=== PATIENT | female | born 1970 | race Caucasian/White ===

== ENCOUNTER → 2020-03-11 11:39 | Outpatient (CLI) | payer MEDICARE, MEDICAID, SELFPAY ==
[2020-03-11 12:00] LABS: Basophils # 0.1 K/mm3 (0-0.2); Basophils % 0.7 % (0.1-2.0); Eosinophils # 0.1 K/mm3 (0.0-0.4); Eosinophils % 0.9 % (0.1-12.0); Hemoglobin 12.7 g/dL (12.2-16.2); Lymphocytes # 1.6 K/mm3 (0.7-4.5); Lymphocytes % 14.3 % (10-50); Mean Corpuscular Hemoglobin 27.9 pg (27.0-31.2); Mean Platelet Volume 7.4 fl (7.4-10.4); Monocytes # 0.3 K/mm3 (0.1-1.0); Monocytes % 2.3 % (1.7-9.3); Neutrophils # 9.3 K/mm3 (1.8-7.8); Neutrophils % 81.9 % (37.0-80.0); Platelet Count 441 K/mm3 (142-424); Red Blood Count 4.55 M/mm3 (4.20-5.40); Red Cell Distribution Width 15.6 % (11.5-17.5); White Blood Count 11.4 K/mm3 (4.8-10.8)
[2020-03-11 14:17] LABS: Chloride 101 mmol/L (98-107); Potassium 4.7 mmoL/L (3.5-5.1); Sodium 138 mmol/L (136-145)
[2020-03-11 14:20] LABS: Alanine Aminotransferase 20 U/L (12-78); Alkaline Phosphatase 78 U/L (38-126); Anion Gap 15.7 mEq/L (5-15); Aspartate Amino Transferase 26 U/L (14-36); Bilirubin,Direct 0.1 mg/dl (0.0-0.4); Bilirubin,Indirect 0.2 mg/dL (0.0-0.9); Bilirubin,Total 0.3 mg/dl (0.2-1.3); Bilirubin,Unconjugated 0.2 mg/dL (0.0-1.1); Blood Urea Nitrogen 11 mg/dl (7-17); Calcium 9.9 mg/dl (8.4-10.2); Carbon Dioxide 26 mmol/L (22.0-30.0); Estimated Glomerular Filt Rate 76 ml/min (>60); GFR (African American) 92 ML/MIN (>60); Glucose 180 mg/dl (74-100)
[2020-03-11 14:21] LABS: Albumin Level 4.1 g/dl (3.5-5.0); Total Protein,Serum 7.7 g/dl (6.3-8.2)
[2020-03-12 10:07] LABS: HIV Screen 4th Generation wRfx Non Reactive (Non Reactive)
[2020-03-12 15:09] LABS: Hep A Ab, IgM Negative (Negative); Hepatitis B Core Antibody IgM Negative (Negative); Hepatitis B Surface Antigen Negative (Negative)
[2020-03-13 09:35] LABS: Hepatitis C Antibody <0.1 s/co ratio (0.0-0.9)
[2020-03-14 04:28] LABS: Rapid Plasma Reagin Ab Titer Non Reactive (NonRea<1:1)
== END ==
PROVIDERS: Visit Provider Family Medicine Addiction Medicine
DX: F11.20 Opioid dependence, uncomplicated (principal); Z11.4 Encounter for screening for human immunodeficiency virus [HIV]; Z11.59 Encounter for screening for other viral diseases
CPT/HCPCS: 36415; 80048; 80053; 80074; 80076; 85025; 86592; 86703; G0432

== ENCOUNTER → 2020-03-19 12:57 | Outpatient (CLI) | payer MEDICARE, MEDICAID, SELFPAY ==
--- NOTE | 2020-03-19 12:57 | XR_ITS ---
PROCEDURE: XR DEXA AXIAL SKELETON CLINICAL HISTORY: osteoporosis COMPARISON: No exams were available for comparison FINDINGS: The right hip BMD is 0.672 with a T-score of -1.6. The left hip BMD is 0.610 with a T-score of -2.2. The lumbar spine BMD is 0.872 with a T-score of -1.6. IMPRESSION: This patient is considered osteopenic according to the World Health Organization criteria. Bone density is between 10 and 25 percent below young normal. Fracture risk is moderate. Treatment is advised. Based on these results a follow-up exam is recommended in 2 year. Dictated by: Keenan Ulloa MD 03/19/2020 20:41 Keenan Ulloa MD in [place] 03/20/2020 11:38
== END ==
PROVIDERS: PCP Physician Assistant; Visit Provider Physician Assistant
DX: M81.0 Age-related osteoporosis without current pathological fracture (principal)
CPT/HCPCS: 77080

== ENCOUNTER → 2020-03-25 18:09 | Outpatient (CLI) | payer MEDICARE, MEDICAID, SELFPAY ==
[2020-03-25 18:47] LABS: Anion Gap 15.2 mEq/L (5-15); Blood Urea Nitrogen 14 mg/dl (7-17); Calcium 9.7 mg/dl (8.4-10.2); Carbon Dioxide 25 mmol/L (22.0-30.0); Chloride 102 mmol/L (98-107); Estimated Glomerular Filt Rate 66 ml/min (>60); GFR (African American) 80 ML/MIN (>60); Glucose 118 mg/dl (74-100); Potassium 4.2 mmoL/L (3.5-5.1); Sodium 138 mmol/L (136-145)
[2020-03-25 19:19] LABS: Thyroid Stimulating Hormone 2.25 uIU/mL (0.465-4.68)
== END ==
PROVIDERS: Visit Provider Physician Assistant
DX: M81.0 Age-related osteoporosis without current pathological fracture (principal); R63.4 Abnormal weight loss; R73.9 Hyperglycemia, unspecified; R73.09 Other abnormal glucose
CPT/HCPCS: 80048; 83036; 84443

== ENCOUNTER 2020-06-02 20:27 | Inpatient (IN) | payer MEDICARE, MEDICAID, SELFPAY ==
[2020-06-02 20:25] VITALS: BP 121/63; PULSE 133; O2SAT 93
[2020-06-02 20:26] VITALS: BP 121/63; PULSE 113; RESP 19; TEMP 36.7; O2SAT 95; BMI 22.4
--- NOTE | 2020-06-02 20:40 | XR_ITS ---
PROCEDURE: XR PELVIS 1-2V CLINICAL INDICATION: fall Pain COMPARISON: No exams were available for comparison TECHNIQUE: XR Pelvis AP View FINDINGS: No fracture or dislocation is evident. No significant degenerative change. Postsurgical changes inter pedicular screws at L5 and S1 with bony hypertrophy at the L5-S1 junction laterally. Surgical clips are present in the lower pelvis on the left. An ostomy bag noted on the right IMPRESSION: As above, no acute finding Dictated by: Keenan Ulloa MD 06/02/2020 22:10 Keenan Ulloa MD in [place] 06/02/2020 22:10
--- NOTE | 2020-06-02 20:40 | XR_ITS ---
PROCEDURE: XR CHEST PORTABLE CLINICAL HISTORY: fall Posttraumatic pain COMPARISON: No exams were available for comparison FINDINGS: The cardiomediastinal silhouette and pulmonary vascularity are within normal limits. The lungs are clear without infiltrates, suspicious nodules, or pleural effusions. There are old right-sided rib fractures IMPRESSION: No acute findings. Dictated by: Keenan Ulloa MD 06/02/2020 22:11 Keenan Ulloa MD in [place] 06/02/2020 22:11
[2020-06-02 20:50] LABS: Basophils # 0.3 K/mm3 (0-0.2); Basophils % 0.9 % (0.1-2.0); Eosinophils # 0.1 K/mm3 (0.0-0.4); Eosinophils % 0.4 % (0.1-12.0); Hematocrit 40.9 % (37.0-47.0); Hemoglobin 12.8 g/dL (12.2-16.2); Lymphocytes # 4.2 K/mm3 (0.7-4.5); Lymphocytes % 11.7 % (10-50); Mean Corpuscular HGB Conc 31.3 g/dL (31.8-35.4); Mean Corpuscular Hemoglobin 28.1 pg (27.0-31.2); Monocytes # 0.5 K/mm3 (0.1-1.0); Monocytes % 1.5 % (1.7-9.3); Neutrophils # 30.6 K/mm3 (1.8-7.8); Neutrophils % 85.5 % (37.0-80.0); Platelet Count 577 K/mm3 (142-424); Red Blood Count 4.54 M/mm3 (4.20-5.40); White Blood Count 35.7 K/mm3 (4.8-10.8)
[2020-06-02 20:51] LABS: Chloride 89 mmol/L (98-107)
[2020-06-02 20:52] LABS: Potassium 3.8 mmoL/L (3.5-5.1); Sodium 125 mmol/L (136-145)
[2020-06-02 20:54] LABS: Alanine Aminotransferase 40 U/L (12-78); Alkaline Phosphatase 126 U/L (38-126); Anion Gap 32.8 mEq/L (5-15); Aspartate Amino Transferase 51 U/L (14-36); Bilirubin,Total 0.4 mg/dl (0.2-1.3); Blood Urea Nitrogen 22 mg/dl (7-17); Calcium 9.5 mg/dl (8.4-10.2); Creatinine Clearance Estimated 26 mL/min (50-200); Estimated Glomerular Filt Rate 20 ml/min (>60); GFR (African American) 25 ML/MIN (>60); Glucose 216 mg/dl (74-100)
[2020-06-02 20:55] VITALS: BP 140/52; PULSE 118; O2SAT 90
[2020-06-02 20:55] LABS: Albumin Level 4.5 g/dl (3.5-5.0); Globulin 4.5 g/dL (1.3-3.2)
[2020-06-02 21:00] LABS: Acetaminophen < 10 ug/ml (10-30); Carbon Dioxide 7 mmol/L (22.0-30.0); Salicylate < 1.0 mg/dL (2.0-20.0)
[2020-06-02 21:01] LABS: Ethyl Alcohol < 10 mg/dl (0-10)
--- NOTE | 2020-06-02 21:02 | HMH.EDFALL ---
ED Disposition Clinical Impression: Severe sepsis with acute organ dysfunction, Septic shock, Cellulitis of gluteal region, Ileostomy in place, МАРИЯ (acute kidney injury), Metabolic acidosis Rheumatoid arthritis Qualifiers: Rheumatoid arthritis location: unspecified site Rheumatoid factor presence: unspecified presence Qualified Code(s): M06.9 - Rheumatoid arthritis, unspecified UTI (urinary tract infection) Qualifiers: Urinary tract infection type: site unspecified Hematuria presence: without hematuria Qualified Code(s): N39.0 - Urinary tract infection, site not specified Disposition: Admitted As Inpatient Condition on Discharge: Serious - Critical Care Critical Care Time: Yes Attestation: On 06/02/20, the high probability of a clinically significant, sudden or life threatening deterioration of the following system(s) required my full and direct attention, intervention and personal management. The time I documented below is in addition to time spent performing reported procedures but includes the following listed in this critical care notation. Total Critical Care Time: 90 Vital system(s) involved:: Shock (Septic) My critical care processes included: Assessment & monitoring of V/S, Initial and Re-exams, Data Review/Interpretation, Medication Orders and management, Documentation Medical Decision Making - Medical Records Medical records reviewed: Yes: I reviewed the patient's medical records. - Nick Inquiry Pt receiving controlled substance: No Vital Signs: 06/02/20 20:25 06/02/20 20:26 06/02/20 20:55 Temperature 98.1 F Temperature Source Oral Pulse Rate [Right Brachial] 133 H 113 H 118 H Respiratory Rate 19 Blood Pressure [Right Arm] 121/63 121/63 140/52 L Blood Pressure Mean [Right Arm] 82 82 81 Blood Pressure Source [Right Arm] Automatic Cuff Manual Cuff/ Palpation Automatic Cuff Blood Pressure Position [Right Arm] Supine Sitting Supine 02 Sat by Pulse Oximetry 93 L 95 90 L Oxygen Delivery Method Room Air Room Air 06/02/20 21:25 06/02/20 21:55 06/03/20 00:00 Temperature Temperature Source Pulse Rate [Right Brachial] 61 100 H 108 H Respiratory Rate 15 Blood Pressure [Right Arm] 100/52 L 151/77 H 101/56 L Blood Pressure Mean [Right Arm] 68 101 71 Blood Pressure Source [Right Arm] Automatic Cuff Automatic Cuff Automatic Cuff Blood Pressure Position [Right Arm] Supine Supine Sitting 02 Sat by Pulse Oximetry 90 L 90 L 98 Oxygen Delivery Method Room Air Room Air 06/03/20 00:30 06/03/20 00:58 Temperature Temperature Source Pulse Rate [Right Brachial] 101 H 92 H Respiratory Rate 15 15 Blood Pressure [Right Arm] 92/60 L 104/62 L Blood Pressure Mean [Right Arm] 70 76 Blood Pressure Source [Right Arm] Automatic Cuff Automatic Cuff Blood Pressure Position [Right Arm] Sitting Sitting 02 Sat by Pulse Oximetry 96 98 Oxygen Delivery Method Room Air Room Air - Lab Data Lab results reviewed: Yes: I reviewed the patient's lab results. Lab Results 06/02/20 20:35: WBC 35.7 H*, RBC 4.54, Hgb 12.8, Hct 40.9, MCV 90.0, MCH 28.1, MCHC 31.3 L, RDW 15.0, Plt Count 577 H, MPV 8.0, Neut % (Auto) 85.5 H, Lymph % (Auto) 11.7, [place] % (Auto) 1.5 L, Eos % (Auto) 0.4, Baso % (Auto) 0.9, Neut # (Auto) 30.6 H, Lymph # (Auto) 4.2, [place] # (Auto) 0.5, Eos # (Auto) 0.1, Baso # (Auto) 0.3 H, Total Counted 100, Neutrophils % (Manual) 96 H, Lymphocytes % (Manual) 3 L, Monocytes % (Manual) 1 L, Platelet Estimate Moderate increase, RBC Morphology Normal 06/02/20 20:35: Sodium 125 L, Potassium 3.8, Chloride 89 L, Carbon Dioxide 7 L*, Anion Gap 32.8 H, BUN 22 H, Creatinine 2.50 H, Estimated Creat Clear 26, Estimated GFR 20 L, Est GFR ( Amer) 25 L, Glucose 216 H, Calcium 9.5, Total Bilirubin 0.4, AST 51 H, ALT 40, Alkaline Phosphatase 126, Total Protein 9.0 H, Albumin 4.5, Globulin 4.5 H, Albumin/Globulin Ratio 1.0 L, Salicylates < 1.0 L, Acetaminophen < 10 L 06/02/20 20:35: Plasma/Serum Alcohol < 10 06/02/20 20:35: Hem
[2020-06-02 21:19] LABS: Acetone, Serum (Rapid) None Detected (None Detect)
[2020-06-02 21:25] VITALS: BP 100/52; PULSE 61; O2SAT 90
[2020-06-02 21:26] LABS: Creatine Kinase 431 U/L (30-135)
[2020-06-02 21:29] LABS: MANUAL DIFFERENTIAL MANUAL DIFFERENTIAL (MANUAL DIFF)
--- NOTE | 2020-06-02 21:38 | PC.NURSE ---
pt ambulated to and from the bathroom independently
[2020-06-02 21:39] LABS: ABG Base Excess -17.3 mmol/L (-2.4-2.3); ABG HCO3 10.7 mmhg (22.0-26.0); ABG Oxygen Saturation 92 % (90-100); ABG PO2 75.4 mmhg (80-100); ABG TCO2 11.6 mmhg (23-27)
[2020-06-02 21:41] LABS: Allen's Test Acceptable; Oxygen room air %; Source Left Radial
[2020-06-02 21:42] LABS: Troponin I < 0.01 ng/ml (0.00-0.034)
[2020-06-02 21:45] LABS: Lactic Acid 10.1 mmol/L (0.7-2.1)
[2020-06-02 21:46] LABS: Hemoglobin A1C 6.1 % (4.0-6.0)
--- NOTE | 2020-06-02 21:46 | PC.NURSE ---
notified of critical lactic
[2020-06-02 21:47] LABS: Benzodiazepines Screen,Urine Positive ng/ml (<200)
[2020-06-02 21:49] LABS: Barbiturates Screen,Urine Negative ng/ml (<200); Methadone Screen,Urine Negative ng/ml (<300)
[2020-06-02 21:50] LABS: Cannabinoid Screen,Urine Negative ng/ml (<50); Cocaine Screen,Urine Negative ng/ml (<300)
[2020-06-02 21:51] LABS: Opiate Screen,Urine Negative ng/ml (<300)
[2020-06-02 21:52] LABS: Phencyclidine Screen,Urine Negative ng/ml (<25)
[2020-06-02 21:55] VITALS: BP 151/77; PULSE 100; O2SAT 90
[2020-06-02 21:56] LABS: Lymphocytes % 3 % (10-50); Monocytes % 1 % (2-9); Neutrophils % 96 % (42-76); Platelet Estimate Moderate Increase; RBC Morphology Normal; Total Cells Counted 100
[2020-06-02 22:36] LABS: Amphetamine/Metha Screen,Urine Negative ng/ml (<1000)
[2020-06-02 22:57] LABS: Microscopic, Urine URINE MICROSCOPIC (MICROSCOPIC)
[2020-06-02 22:59] LABS: Appearance,Urine CLEAR (Clear); Bilirubin,Urine Negative (Negative); Blood, Urine 3+ (Negative); Color,Urine YELLOW (Yellow); Glucose,Urine (UA) Negative (Negative); Ketones,Urine Negative (Negative); Leukocyte Esterase,Urine 1+ (Negative); Nitrate,Urine Negative (Negative); Protein,Urine 2+ (Negative); Urobilinogen,Urine 0.2 EU/dl (0.2)
[2020-06-02 23:15] LABS: C-Reactive Protein 97.1 mg/L (0-4); Coronavirus 19 IgG Antibody Negative (Negative); Coronavirus 19 IgM Antibody Negative (Negative)
[2020-06-02 23:22] LABS: Amorphous Sediment,Urine 1+ /lpf; Bacteria,Urine 1+ /lpf
[2020-06-02 23:28] LABS: Procalcitonin 0.943 ng/mL (0.0-2.0)
[2020-06-02 23:36] LABS: Erythrocyte Sedimentation Rate 14 mm/hr (0-30)
[2020-06-02 23:38] LABS: Activated Partial Thrombo Time 27.1 seconds (23.6-34.0)
[2020-06-03] VITALS (11 sets, daily range): BP systolic 92–126; BP diastolic 53–86; PULSE 89–108; RESP 15–24; TEMP 36.6–36.9; O2SAT 90–99; BMI 28.1
--- NOTE | 2020-06-03 00:56 | PC.NURSE ---
lab in room drawing blood at this time
[2020-06-03 01:03] LABS: Reflex Lactic Add Lactic Reflex
[2020-06-03 01:14] LABS: Anion Gap 12.6 mEq/L (5-15); Blood Urea Nitrogen 22 mg/dl (7-17); Carbon Dioxide 19 mmol/L (22.0-30.0); Chloride 97 mmol/L (98-107); Creatinine Clearance Estimated 34 mL/min (50-200); Estimated Glomerular Filt Rate 28 ml/min (>60); GFR (African American) 34 ML/MIN (>60); Glucose 78 mg/dl (74-100); Potassium 3.6 mmoL/L (3.5-5.1); Sodium 125 mmol/L (136-145)
[2020-06-03 01:26] LABS: Troponin I 0.03 ng/ml (0.00-0.034)
[2020-06-03 01:29] LABS: Lactic Acid Follow Up (RFLX 1) 2.5 mmol/L (0.7-2.1)
[2020-06-03 01:46] LABS: Calcium 7.8 mg/dl (8.4-10.2)
[2020-06-03 03:03] LABS: Reflex Lactic (2 hrs) Add Lactic Reflex
[2020-06-03 04:05] LABS: Lactic Acid Follow up (RFLX 2) 2.4 mmol/L (0.7-2.1)
[2020-06-03 06:45] LABS: Chloride 104 mmol/L (98-107); Potassium 3.4 mmoL/L (3.5-5.1); Sodium 132 mmol/L (136-145)
[2020-06-03 06:47] LABS: Blood Urea Nitrogen 20 mg/dl (7-17); Creatinine Clearance Estimated 41 mL/min (50-200); Estimated Glomerular Filt Rate 30 ml/min (>60); GFR (African American) 36 ML/MIN (>60)
[2020-06-03 06:48] LABS: Anion Gap 11.4 mEq/L (5-15); Calcium 8.2 mg/dl (8.4-10.2); Carbon Dioxide 20 mmol/L (22.0-30.0); Glucose 110 mg/dl (74-100); Magnesium 3.1 mg/dl (1.6-2.3)
[2020-06-03 06:54] LABS: Basophils # 0.1 K/mm3 (0-0.2); Basophils % 0.3 % (0.1-2.0); Eosinophils # 0.1 K/mm3 (0.0-0.4); Eosinophils % 0.2 % (0.1-12.0); Hematocrit 40.4 % (37.0-47.0); Hemoglobin 12.6 g/dL (12.2-16.2); Lymphocytes # 2.7 K/mm3 (0.7-4.5); Mean Corpuscular HGB Conc 31.1 g/dL (31.8-35.4); Mean Corpuscular Hemoglobin 26.9 pg (27.0-31.2); Mean Corpuscular Volume 86.4 fl (81-99); Mean Platelet Volume 7.6 fl (7.4-10.4); Monocytes % 3.9 % (1.7-9.3); Neutrophils % 85.5 % (37.0-80.0); Platelet Count 467 K/mm3 (142-424); Red Blood Count 4.68 M/mm3 (4.20-5.40); Red Cell Distribution Width 14.6 % (11.5-17.5); White Blood Count 26.9 K/mm3 (4.8-10.8)
[2020-06-03 07:00] LABS: MANUAL DIFFERENTIAL MANUAL DIFFERENTIAL (MANUAL DIFF)
--- NOTE | 2020-06-03 07:22 | HMH.PHAVTE ---
[facility] Pharmacy VTE Monitoring - Patient Demographics Admission date: 06/02/20 Report Date: 06/03/20 Time: 07:23 Allergies/Adverse Reactions: Patient Allergies ibuprofen [From Motrin] Allergy (Mild, Verified 05/23/20 09:47) Height: 1.57 m Weight: 69.853 kg Patient Problems: Current Active Problems Severe sepsis with acute organ dysfunction (Acute) Septic shock (Acute) Cellulitis of gluteal region (Acute) МАРИЯ (acute kidney injury) (Acute) UTI (urinary tract infection) (Acute) Metabolic acidosis (Acute) Ileostomy in place (Chronic) Rheumatoid arthritis (Chronic) - VTE Risk Labs: VTE Related Lab Results Hgb 12.6 g/dL (12.2-16.2) 06/03/20 06:15 Hct 40.4 % (37.0-47.0) 06/03/20 06:15 Plt Count 467 K/mm3 (142-424) H 06/03/20 06:15 APTT 27.1 seconds (23.6-34.0) 06/02/20 20:35 BUN 20 mg/dl (7-17) H 06/03/20 06:15 Creatinine 1.80 mg/dl (0.52-1.04) H 06/03/20 06:15 Estimated Creat Clear 41 mL/min (50-200) 06/03/20 06:15 VTE Score: 8 VTE Risk Level: Moderate Risk - Prophylaxis VTE Prophylaxis Ordered?: Yes Types of VTE Prophylaxis: TEDS Knee High Location of Applied Device: Bilateral Lower Extremeties
--- NOTE | 2020-06-03 07:23 | PC.NURSE ---
Dr. Pearce notified of consult.
--- NOTE | 2020-06-03 07:48 | PC.NURSE ---
Pt is A&Ox4. Pt has c/o lower back/gluteal pain x1 this shift, PRN pain meds administered per MAR. LUng sounds clear, pt continues to tolerate RA. Active bowel sounds in all 4 quads. NO other acute changes or complaints at this time.
--- NOTE | 2020-06-03 07:59 | PC.WOUNDNOTE ---
Wound Location: sacrum Length:8 cm Width:2 cm Inflammation/swelling Y/N:yes Pain and/or tenderness Y/N:yes Exudate: Serosanguinous Color: Clear [place] Consistency: \ Thin Amount: Small Odor Y/N:no
--- NOTE | 2020-06-03 08:04 | PC.WOUNDNOTE ---
Wound Location: rt knee Length: 2 cm Width:3 cm Inflammation/swelling Y/N:no Pain and/or tenderness Y/N:no Color: [place] Red Odor Y/N:
--- NOTE | 2020-06-03 08:11 | HMH.PHACONS ---
- Pharmacy Consult Date: 06/03/20 Time: 08:11 Referring provider: DR. ADKINS Reason for Consult:: VANCOMYCIN DOSING Allergies and ADEs:: Allergies Allergy/AdvReac Type Severity Reaction Status Date / Time ibuprofen [From Motrin] Allergy Mild Verified 05/23/20 09:47 Home Medications:: Home Medications Medication Instructions Recorded Confirmed Type buspirone 10 mg tablet 10 mg PO BID 03/25/20 06/03/20 History Adalimumab [Humira Pen] 40 mg SQ DIRECTED 06/03/20 06/03/20 History Amitriptyline HCl [Elavil 25mg 25 mg PO DAILY 06/03/20 06/03/20 History tablet] Fluoxetine HCl 40 mg PO DAILY 06/03/20 06/03/20 History Fluoxetine HCl [Prozac] 20 mg PO DAILY 06/03/20 06/03/20 History Gabapentin 800 mg PO TID 06/03/20 06/03/20 History Oxycodone HCl/Acetaminophen 1 tab PO QID 06/03/20 06/03/20 History [Oxycodone-Acetaminophen 10-325] Height: 1.57 m Weight: 69.853 kg Laboratory Results:: Laboratory Results - last 24 hr 06/02/20 20:35: WBC 35.7 H*, RBC 4.54, Hgb 12.8, Hct 40.9, MCV 90.0, MCH 28.1, MCHC 31.3 L, RDW 15.0, Plt Count 577 H, MPV 8.0, Neut % (Auto) 85.5 H, Lymph % (Auto) 11.7, [place] % (Auto) 1.5 L, Eos % (Auto) 0.4, Baso % (Auto) 0.9, Neut # (Auto) 30.6 H, Lymph # (Auto) 4.2, [place] # (Auto) 0.5, Eos # (Auto) 0.1, Baso # (Auto) 0.3 H, Total Counted 100, Neutrophils % (Manual) 96 H, Lymphocytes % (Manual) 3 L, Monocytes % (Manual) 1 L, Platelet Estimate Moderate increase, RBC Morphology Normal 06/02/20 20:35: Sodium 125 L, Potassium 3.8, Chloride 89 L, Carbon Dioxide 7 L*, Anion Gap 32.8 H, BUN 22 H, Creatinine 2.50 H, Estimated Creat Clear 26, Estimated GFR 20 L, Est GFR ( Amer) 25 L, Glucose 216 H, Calcium 9.5, Total Bilirubin 0.4, AST 51 H, ALT 40, Alkaline Phosphatase 126, Total Protein 9.0 H, Albumin 4.5, Globulin 4.5 H, Albumin/Globulin Ratio 1.0 L, Salicylates < 1.0 L, Acetaminophen < 10 L 06/02/20 20:35: Plasma/Serum Alcohol < 10 06/02/20 20:35: Hemoglobin A1c 6.1 H 06/02/20 20:35: Total Creatine Kinase 431 H, Troponin I < 0.01, Acetone Level None detected 06/02/20 20:35: SARS-CoV-2 IgG Ab (Rapid) Negative, SARS-CoV-2 IgM Ab (Rapid) Negative 06/02/20 20:35: APTT 27.1 06/02/20 20:35: ESR 14 06/02/20 20:35: C-Reactive Protein 97.1 H, Procalcitonin 0.943 06/02/20 21:05: Specimen Source Left radial, O2 % room air, ABG pH 7.20 L*, ABG pCO2 28.0 L, ABG pO2 75.4 L, ABG HCO3 10.7 L, ABG Total CO2 11.6 L, ABG O2 Saturation 92, ABG Base Excess -17.3 L, Keenan Test Acceptable 06/02/20 21:15: Lactate 10.1 H 06/02/20 21:32: Urine Opiates Screen Negative, Urine Methadone Screen Negative, Ur Barbituates Screen Negative, Ur Phencyclidine Scrn Negative, Ur Amphetamines Screen Negative, U Benzodiazepines Scrn Positive H, Urine Cocaine Screen Negative, U Marijuana (THC) Screen Negative 06/02/20 22:53: Urine Color Yellow, Urine Appearance Clear, Urine pH 6.0, Ur Specific [place] 1.010, Urine Protein 2+, Urine Glucose (UA) Negative, Urine Ketones Negative, Urine Blood 3+, Urine Nitrate Negative, Urine Bilirubin Negative, Urine Urobilinogen 0.2, Ur Leukocyte Esterase 1+ A, Urine RBC 5-10, Urine WBC 3-5, Ur Squamous Epith Cells 3-5, Amorphous Sediment 1+, Urine Bacteria 1+ 06/03/20 01:00: Troponin I 0.03 06/03/20 01:00: Sodium 125 L, Potassium 3.6, Chloride 97 L, Carbon Dioxide 19 L D, Anion Gap 12.6, BUN 22 H, Creatinine 1.90 H D, Estimated Creat Clear 34, Estimated GFR 28 L, Est GFR ( Amer) 34 L D, Glucose 78 D, Calcium 7.8 L D 06/03/20 01:00: Lactate 2.5 H 06/03/20 03:30: Lactate 2.4 H 06/03/20 06:15: WBC 26.9 H*, RBC 4.68, Hgb 12.6, Hct 40.4, MCV 86.4, MCH 26.9 L, MCHC 31.1 L, RDW 14.6, Plt Count 467 H, MPV 7.6, Neut % (Auto) 85.5 H, Lymph % (Auto) 10.0, [place] % (Auto) 3.9, Eos % (Auto) 0.2, Baso % (Auto) 0.3, Neut # (Auto) 23.0 H, Lymph # (Auto) 2.7, [place]land # (Auto) 1.0, Eos # (Auto) 0.1, Baso # (Auto) 0.1 06/03/20 06:15: Sodium 132 L, Potassium 3.4 L, Chloride 104, Carbon Dioxide 20 L, Anion Gap 11.4, BUN 20 H, Creatinine 1.80 H, Estimated
--- NOTE | 2020-06-03 08:29 | HMH.HP ---
*Admission Date: 06/02/20 *Chief complaint: Fell *History of present illness: 49-year-old female patient reports she was walking her dog outside and was returning home, came to the hill leading up to her house, fell, and was unable to make it up the hill. She reports she has been feeling tired and weak for a couple days and decreased food/fluid intake. She denies fever/chills/body aches. EMS was activated and patient was brought into the emergency room. She denies hitting her head or loss of consciousness, chest pain, or any injury to her body. She does have a chronic wound in her gluteal region and bilateral medial buttocks and an ileostomy. In the emergency room she received morphine, Zofran, vancomycin, Zosyn IV, and approximately 3 L of IV fluid. She has a past medical history of Crohn's with ileostomy, osteoporosis, and rheumatoid arthritis and taking Humira Lab work on presentation white count 35.7, H/H 12.8/40.9, sodium 125, potassium 3.8, BUN 22, creatinine 2.5, GFR 20, anion gap 32.8. Urinalysis showed 1+ leukocyte esterase and 1+ bacteria, culture was sent to lab. Heart rate on arrival was 133, blood pressure has been as low as 92/60, and she was afebrile. Abdomen/pelvic CT unable to be performed due to acute kidney injury 06/02/20 chest x-ray revealed no acute findings 06/02/20 Pelvic XR: FINDINGS: No fracture or dislocation is evident. No significant degenerative change. Postsurgical changes inter pedicular screws at L5 and S1 with bony hypertrophy at the L5-S1 junction laterally. Surgical clips are present in the lower pelvis on the left. An ostomy bag noted on the right IMPRESSION: As above, no acute finding Dictated by: Artemio, This morning 49-year-old female patient sitting up in bed she reports she is feeling better reports last night she was confused, fell down, and is able to get back up to her feet. She does report she has had some drainage in her gluteal folds but also reports that is somewhat normal for her she reports. She does report having some increased pain in her gluteal area. General surgery has been consulted and awaiting their recommendations. We will also repeat a BMP this afternoon to see if there is an increase in her kidney function. Now sodium 132, potassium 3.4, BUN 20, creatinine 1.8, GFR of 40, and an ion gap 11.4. PLAN: 1. Consult surgery 2. BMP this afternoon 3. Continue Vanco and Zosyn 4. Awaiting urine culture, wound culture, and blood cultures [facility] History I have reviewed the patient's past medical history: Yes Medical History: Reports:: Anxiety, Depression, Hypertension Denies:: Diabetes Mellitus Type 1, Diabetes Mellitus Type 2, Hyperlipidemia *Have you ever received a pneumonia vaccine?: Yes *Have you received a flu vaccine this season?: Yes Other Medical History: Reports: Arthritis Other Surgeries: Yes: Appendectomy, Colonoscopy, Colon Resection, Colostomy, Dilation and Curettage, Other Amputation: No Fractures: Yes - *Social History Last grade of school completed: Some college Smoking Status: Current every day smoker Tobacco Type: e-cigarettes # Packs/Day (cigarettes): 1 Alcohol Intake: current Alcohol Intake Frequency:: holidays/special occasions only Substance Use Type: former substance user, opiates *Occupational Status:: disabled *Travel in the last 8 weeks: None - Psychiatric History Pschychiatric History:: Reports:: Anxiety, Depression Family Hx:: Cancer, Diabetes, Hypertension, Stroke, Thyroid Disorder, Mental illness Review of Systems - Review of Systems Review of systems:: pertinent systems reviewed and negative unless documented below - Constitutional Denies anorexia, Denies chills - Eyes Denies blind spots, Denies loss of vision - ENT Denies abnormal hearing, Denies pain with swallowing - *Cardiovascular Denies chest pain, Denies shortness of breath - *Respiratory Denies chest congestion, Denies cough - *Gastrointestin
--- NOTE | 2020-06-03 08:46 | HMH.GSCON ---
*Admission Date: 06/02/20 *Reason for consult:: Possible gluteal abscess *History of present illness: This is a 49-year-old female seen in consultation from the service of Dr. Gonzalez for evaluation of possible gluteal abscess. She has a complicated past medical and past surgical history including ostomy. She has chronic breakdown/wound of the entire gluteal region and medial bilateral buttocks. She was evaluated emergency department overnight after presenting status post an apparent fall with some mental status changes. Evaluation did reveal significant thickening of tissue and concerns for possible abscess were discussed with the patient. Review of Systems - Review of Systems Review of systems:: unable to obtain - *Neurologic Denies headache(s), Denies seizure-like activity [facility] History Medical History: Reports:: Anxiety, Depression, Hypertension Denies:: Diabetes Mellitus Type 1, Diabetes Mellitus Type 2, Hyperlipidemia *Have you ever received a pneumonia vaccine?: Yes *Have you received a flu vaccine this season?: Yes Other Medical History: Reports: Arthritis Other Surgeries: Yes: Appendectomy, Colonoscopy, Colon Resection, Colostomy, Dilation and Curettage, Other Amputation: No Fractures: Yes - *Social History Last grade of school completed: Some college Smoking Status: Current every day smoker Tobacco Type: e-cigarettes # Packs/Day (cigarettes): 1 Alcohol Intake: current Alcohol Intake Frequency:: holidays/special occasions only Substance Use Type: former substance user, opiates *Occupational Status:: disabled *Travel in the last 8 weeks: None - Psychiatric History Pschychiatric History:: Reports:: Anxiety, Depression Family Hx:: Cancer, Diabetes, Hypertension, Stroke, Thyroid Disorder, Mental illness Meds Home Medications Medication Instructions Recorded Confirmed Type buspirone 10 mg tablet 10 mg PO BID 03/25/20 06/03/20 History Adalimumab [Humira Pen] 40 mg SQ DIRECTED 06/03/20 06/03/20 History Amitriptyline HCl [Elavil 25mg 25 mg PO DAILY 06/03/20 06/03/20 History tablet] Fluoxetine HCl 40 mg PO DAILY 06/03/20 06/03/20 History Fluoxetine HCl [Prozac] 20 mg PO DAILY 06/03/20 06/03/20 History Gabapentin 800 mg PO TID 06/03/20 06/03/20 History Oxycodone HCl/Acetaminophen 1 tab PO QID 06/03/20 06/03/20 History [Oxycodone-Acetaminophen 10325] Allergies Allergy/AdvReac Type Severity Reaction Status Date / Time ibuprofen [From Motrin] Allergy Mild Verified 05/23/20 09:47 Exam Vital signs and Labs for Last 24 Hours: Temp Pulse Resp BP Pulse Ox 97.9 F 89 18 93/53 L 90 L 06/03/20 08:00 06/03/20 08:00 06/03/20 08:00 06/03/20 08:00 06/03/20 08:00 Laboratory Results - last 24 hr 06/02/20 20:35: WBC 35.7 H*, RBC 4.54, Hgb 12.8, Hct 40.9, MCV 90.0, MCH 28.1, MCHC 31.3 L, RDW 15.0, Plt Count 577 H, MPV 8.0, Neut % (Auto) 85.5 H, Lymph % (Auto) 11.7, [place] % (Auto) 1.5 L, Eos % (Auto) 0.4, Baso % (Auto) 0.9, Neut # (Auto) 30.6 H, Lymph # (Auto) 4.2, [place] # (Auto) 0.5, Eos # (Auto) 0.1, Baso # (Auto) 0.3 H, Total Counted 100, Neutrophils % (Manual) 96 H, Lymphocytes % (Manual) 3 L, Monocytes % (Manual) 1 L, Platelet Estimate Moderate increase, RBC Morphology Normal 06/02/20 20:35: Sodium 125 L, Potassium 3.8, Chloride 89 L, Carbon Dioxide 7 L*, Anion Gap 32.8 H, BUN 22 H, Creatinine 2.50 H, Estimated Creat Clear 26, Estimated GFR 20 L, Est GFR ( Amer) 25 L, Glucose 216 H, Calcium 9.5, Total Bilirubin 0.4, AST 51 H, ALT 40, Alkaline Phosphatase 126, Total Protein 9.0 H, Albumin 4.5, Globulin 4.5 H, Albumin/Globulin Ratio 1.0 L, Salicylates < 1.0 L, Acetaminophen < 10 L 06/02/20 20:35: Plasma/Serum Alcohol < 10 06/02/20 20:35: Hemoglobin A1c 6.1 H 06/02/20 20:35: Total Creatine Kinase 431 H, Troponin I < 0.01, Acetone Level None detected 06/02/20 20:35: SARS-CoV-2 IgG Ab (Rapid) Negative, SARS-CoV-2 IgM Ab (Rapid) Negative 06/02/20 20:35: APTT 27.1 06/02/20 20:35: ESR 14 06/02/20 20:35: C
[2020-06-03 08:48] LABS: Lymphocytes % 24 % (10-50); Monocytes % 4 % (2-9); Neutrophils % 68 % (42-76); Total Cells Counted 100
[2020-06-03 08:49] LABS: Platelet Estimate Normal; RBC Morphology Normal
--- NOTE | 2020-06-03 09:58 | HMH.PHAINT ---
MEDICATION RECONCILIATION COMPLETED ON PATIENT USING EXTERNAL FILL HISTORY FROM PHARMACY AND LIST FROM MD OFFICE. -LITTLE COREAD
[2020-06-03 13:18] LABS: Chloride 117 mmol/L (98-107); Potassium 5.6 mmoL/L (3.5-5.1); Sodium 141 mmol/L (136-145)
[2020-06-03 13:21] LABS: Anion Gap 19.6 mEq/L (5-15); Blood Urea Nitrogen 19 mg/dl (7-17); Creatinine Clearance Estimated 46 mL/min (50-200); Estimated Glomerular Filt Rate 34 ml/min (>60); GFR (African American) 41 ML/MIN (>60)
[2020-06-03 13:22] LABS: Calcium 8.3 mg/dl (8.4-10.2); Glucose 78 mg/dl (74-100)
[2020-06-03 13:24] LABS: Carbon Dioxide 10 mmol/L (22.0-30.0)
--- NOTE | 2020-06-03 16:26 | PC.NURSE ---
SHE IS AOX4 AND ABLE TO MAKE NEEDS KNOWN TO STAFF, SHE HAS C/O PAIN TO HER BACKSIDE T/O SHIFT, 2MG MORPHINE ADMIN PER MAR WITH [facility] EFFECTIVENESS, SHE HAS TOLERATED CLD WITH NO COMPLAINTS, LEANN BRAMBILA WAS CONTACTED ABOUT PLAN FOR PT AND STATED THAT SHE COULD POSSIBLY RECIEVE HER CT SCAN THIS EVENING IF HER LAB VALUES IMPROVE, THIS NURSE WAS NOTIFIED OF PT CO2 LEVEL AND COMMUNICATED THIS TO DR OLIVER OFFICE, SODIUM BICARB ADMIN PER MD ORDERS, PT HAS TOLERATED RA WELL WITH NO SOA NOTED, SHE WAS UP TO CHAIR FOR AROUND 2 HOURS THIS SHIFT AND TOLERATED AMBULATION WELL, AT THIS TIME HER VITAL SIGNS REMINA STABLE, NO NEEDS VOICED, WILL CONTINUE TO MONITOR.
[2020-06-03 21:23] LABS: Chloride 105 mmol/L (98-107); Potassium 3.7 mmoL/L (3.5-5.1); Sodium 132 mmol/L (136-145)
[2020-06-03 21:26] LABS: Anion Gap 8.7 mEq/L (5-15); Blood Urea Nitrogen 15 mg/dl (7-17); Calcium 8.4 mg/dl (8.4-10.2); Carbon Dioxide 22 mmol/L (22.0-30.0); Creatinine Clearance Estimated 49 mL/min (50-200); Estimated Glomerular Filt Rate 37 ml/min (>60); GFR (African American) 44 ML/MIN (>60); Glucose 92 mg/dl (74-100)
[2020-06-04] VITALS: BP 118/68; PULSE 109; RESP 22; TEMP 37.3; O2SAT 94
[2020-06-04 04:00] VITALS: BP 98/60; PULSE 104; RESP 24; TEMP 37.6; O2SAT 94
--- NOTE | 2020-06-04 04:44 | PC.NURSE ---
Pt is A&Ox4. Pt has c/o gluteal fold pain t/o the night, pt medicated per AUG. Lung sounds remain clear, pt continues to tolerate RA appropriately. Active bowel sounds in all 4 quads, no BM noted. No other complaints or acute changes at this time. Will continue to monitor.
[2020-06-04 05:23] VITALS: BMI 28.3
[2020-06-04 06:13] LABS: Basophils # 0.1 K/mm3 (0-0.2); Basophils % 0.6 % (0.1-2.0); Eosinophils # 0.1 K/mm3 (0.0-0.4); Eosinophils % 0.8 % (0.1-12.0); Hematocrit 32.3 % (37.0-47.0); Lymphocytes % 17.6 % (10-50); Mean Corpuscular HGB Conc 32.4 g/dL (31.8-35.4); Mean Corpuscular Hemoglobin 27.6 pg (27.0-31.2); Mean Platelet Volume 7.9 fl (7.4-10.4); Monocytes # 0.8 K/mm3 (0.1-1.0); Monocytes % 4.9 % (1.7-9.3); Neutrophils % 76.1 % (37.0-80.0); Platelet Count 379 K/mm3 (142-424); Red Cell Distribution Width 15.4 % (11.5-17.5)
[2020-06-04 06:15] LABS: Chloride 111 mmol/L (98-107); Potassium 3.6 mmoL/L (3.5-5.1); Sodium 135 mmol/L (136-145)
[2020-06-04 06:18] LABS: Anion Gap 7.6 mEq/L (5-15); Blood Urea Nitrogen 11 mg/dl (7-17); Calcium 7.7 mg/dl (8.4-10.2); Carbon Dioxide 20 mmol/L (22.0-30.0); Creatinine Clearance Estimated 61 mL/min (50-200); Estimated Glomerular Filt Rate 47 ml/min (>60); GFR (African American) 57 ML/MIN (>60); Glucose 119 mg/dl (74-100)
[2020-06-04 06:19] LABS: Hemoglobin 10.6 g/dL (12.2-16.2); MANUAL DIFFERENTIAL MANUAL DIFFERENTIAL (MANUAL DIFF)
--- NOTE | 2020-06-04 07:15 | HMH.GSPN ---
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 No obvious spreading cellulitis or definitive sign of drainable abscess. Patient's renal function improving; therefore, she will likely be able to tolerate a CT scan with contrast fairly soon. Timing of the study will be deferred to primary service. If no obvious abscess or other soft tissue infection noted on CT scan she may benefit from either MRI or bone scan to evaluate for possible osteomyelitis. (9) UTI (urinary tract infection) Status: Acute Exam Vital signs and Labs for Last 24 Hours: Temp Pulse Resp BP Pulse Ox 99.6 F 104 H 24 98/60 L 94 L 06/04/20 04:00 06/04/20 04:00 06/04/20 04:00 06/04/20 04:00 06/04/20 04:00 Laboratory Results - last 24 hr 06/03/20 06:15: Total Counted 100, Neutrophils % (Manual) 68, Band Neutrophils % 4.0, Lymphocytes % (Manual) 24, Monocytes % (Manual) 4, Platelet Estimate Normal, RBC Morphology Normal 06/03/20 12:01: Sodium 141, Potassium 5.6 H D, Chloride 117 H, Carbon Dioxide 10 L D, Anion Gap 19.6 H, BUN 19 H, Creatinine 1.60 H, Estimated Creat Clear 46, Estimated GFR 34 L, Est GFR ( Amer) 41 L, Glucose 78 D, Calcium 8.3 L 06/03/20 21:05: Sodium 132 L, Potassium 3.7 D, Chloride 105, Carbon Dioxide 22 D, Anion Gap 8.7, BUN 15, Creatinine 1.50 H, Estimated Creat Clear 49, Estimated GFR 37 L, Est GFR ( Amer) 44 L, Glucose 92, Calcium 8.4 06/04/20 05:58: WBC 17.0 H D, RBC 3.80 L, Hgb 10.6 L D, Hct 32.3 L, MCV 85.0, MCH 27.6, MCHC 32.4, RDW 15.4, Plt Count 379, MPV 7.9, Neut % (Auto) 76.1, Lymph % (Auto) 17.6, Elliott % (Auto) 4.9, Eos % (Auto) 0.8, Baso % (Auto) 0.6, Neut # (Auto) 13.0 H, Lymph # (Auto) 3.0, Elliott # (Auto) 0.8, Eos # (Auto) 0.1, Baso # (Auto) 0.1 06/04/20 05:58: Sodium 135 L, Potassium 3.6, Chloride 111 H, Carbon Dioxide 20 L, Anion Gap 7.6, BUN 11 D, Creatinine 1.20 H, Estimated Creat Clear 61, Estimated GFR 47 L, Est GFR ( Amer) 57 L D, Glucose 119 H D, Calcium 7.7 L I & O for Last 24 hours: Intake & Output 06/01/20 06/02/20 06/03/20 06/04/20 11:59 11:59 11:59 11:59 Intake Total 0 / 0 975 / 975 Balance 0 / 0 975 / 975 Weight 154 lb 154 lb 5 oz Microbiology Reports for the Last 24 Hours: Microbiology 06/03/20 01:00 Blood Blood Culture - Preliminary 06/02/20 22:56 Buttock - Abscess Gram Stain - Final 06/02/20 22:56 Buttock - Abscess Wound Culture - Preliminary NO GROWTH AFTER 24 HOURS 06/02/20 22:53 Urine,Clean Catch Urine Culture - Preliminary NO GROWTH AFTER 24 HOURS - Constitutional no acute distress - *Routine Respiratory Exam Absent: respiratory distress - *Routine Cardiovascular Exam Present: RRR - *Routine Skin Exam Comments: No significant change in large complex chronic gluteal/medial buttock wound. No spreading cellulitis.
--- NOTE | 2020-06-04 07:21 | CT_ITS ---
PROCEDURE: CT ABDOMEN PELVIS W CON CLINICAL INDICATION: possible gluteal abscess Left-sided buttock pain and swelling with a boil on the buttock area., history of rectal and anal fistula COMPARISON: CR XR CHEST PORTABLE from 06/02/2020 TECHNIQUE: IV Contrast: 75ML Isovue 370 Oral Contrast None Axial images obtained with sagittal and coronal reformats. All CT scans at the facility use one or more dose reduction, viz: automated exposure control, ma/kV adjustment per patient size (including targeted exams where dose is matched to indication, i.e. head), or iterative reconstruction technique. FINDINGS: LOWER THORAX: Patchy ground-glass attenuation is present in both lower lobes with a crazy paving pattern in the left lower lobe posteriorly there is more dense area of consolidation in the subpleural region in the right lower lobe. ABDOMEN & PELVIS: There is moderate to severe distention of the gallbladder. The liver, spleen, adrenal glands, and pancreas have an unremarkable appearance. No renal or ureteral calculi. No hydronephrosis. There is some minimal haziness of the retroperitoneal fat on the left. There is a right lower quadrant ileostomy. There has been a prior colectomy. There are fluid-filled loops of small bowel with a few air-fluid levels which is nonspecific. No transition point is identified. Surgical clips are present in the pelvis. Abnormal soft tissue density is present in the presacral region. There is a small focus of gas in this area. There is also increased soft tissue density posterior to the sacrum and coccyx extending to the subcutaneous tissues. There is a small amount of gas in this area. It is uncertain where the gas is within the anal crease or within a fistula. There is a small air-fluid level in the presacral region consistent with a small abscess. There is thickening of the gluteus on the left with a small gas bubble in this area just to the left of the sacrum. There is partial destruction of the coccyx consistent with osteomyelitis. Superficial to the left gluteus madonna there is a an oval fluid collection measuring 4.5 x 2 cm containing a small amount of gas consistent with an abscess. The uterus has a somewhat heterogeneous density nonspecific. Bilateral ovarian cysts are noted. There are postsurgical changes of the anterior abdominal wall at the umbilical region. Mildly prominent lymph nodes are present in the inguinal region on both sides. IMPRESSION: 1. 4.5 x 2 cm subcutaneous abscess just superficial to the left gluteus madonna. The abscess does not have a mature capsule. 2. Abnormal soft tissue density within the presacral region extending to the subcutaneous tissues at the anal crease. There is some scattered gas in this area consistent with phlegmonous changes. There may be a small presacral abscess with a small air-fluid level at this region. There is partial destruction of the tip of the coccyx consistent with osteomyelitis. 3. Patchy ground-glass infiltrate in both lower lobes with crazy paving pattern on the left. This may be seen with Covid19 pneumonia. 4. Hydrops of the gallbladder Dictated by: Keenan Ulloa MD 06/04/2020 09:27 Keenan Ulloa MD in [facility] 06/04/2020 09:27
[2020-06-04 07:48] VITALS: BP 117/67; PULSE 107; RESP 20; TEMP 37.3; O2SAT 89
[2020-06-04 08:23] LABS: Lymphocytes % 17 % (10-50); Monocytes % 4 % (2-9); Neutrophils % 79 % (42-76); Platelet Estimate Normal; RBC Morphology Normal; Total Cells Counted 100
--- NOTE | 2020-06-04 08:29 | HMH.ACPN2 ---
Internal Medicine - PN: Subj *Date: 06/04/20 *Time: 09:14 Interval history: 49-year-old female patient of on side of bed awaiting to go to CT, she reports she is feeling a lot better denies any pain. Lab work this morning reveals blood cell count still elevated at 17, BUN 11, creatinine 1.2, GFR 47, anion gap 7.6 Surgery has seen and recommends: If no obvious abscess or other soft tissue infection noted on CT scan she may benefit from either MRI or bone scan to evaluate for possible osteomyelitis. Exam Vital signs and Labs for Last 24 Hours: Temp Pulse Resp BP Pulse Ox 99.1 F 107 H 20 117/67 89 L 06/04/20 07:48 06/04/20 07:48 06/04/20 07:48 06/04/20 07:48 06/04/20 07:48 Laboratory Results - last 24 hr 06/03/20 06:15: Total Counted 100, Neutrophils % (Manual) 68, Band Neutrophils % 4.0, Lymphocytes % (Manual) 24, Monocytes % (Manual) 4, Platelet Estimate Normal, RBC Morphology Normal 06/03/20 12:01: Sodium 141, Potassium 5.6 H D, Chloride 117 H, Carbon Dioxide 10 L D, Anion Gap 19.6 H, BUN 19 H, Creatinine 1.60 H, Estimated Creat Clear 46, Estimated GFR 34 L, Est GFR ( Amer) 41 L, Glucose 78 D, Calcium 8.3 L 06/03/20 21:05: Sodium 132 L, Potassium 3.7 D, Chloride 105, Carbon Dioxide 22 D, Anion Gap 8.7, BUN 15, Creatinine 1.50 H, Estimated Creat Clear 49, Estimated GFR 37 L, Est GFR ( Amer) 44 L, Glucose 92, Calcium 8.4 06/04/20 05:58: WBC 17.0 H D, RBC 3.80 L, Hgb 10.6 L D, Hct 32.3 L, MCV 85.0, MCH 27.6, MCHC 32.4, RDW 15.4, Plt Count 379, MPV 7.9, Neut % (Auto) 76.1, Lymph % (Auto) 17.6, Mesa % (Auto) 4.9, Eos % (Auto) 0.8, Baso % (Auto) 0.6, Neut # (Auto) 13.0 H, Lymph # (Auto) 3.0, Mesa # (Auto) 0.8, Eos # (Auto) 0.1, Baso # (Auto) 0.1, Total Counted 100, Neutrophils % (Manual) 79 H, Lymphocytes % (Manual) 17, Monocytes % (Manual) 4, Platelet Estimate Normal, RBC Morphology Normal 06/04/20 05:58: Sodium 135 L, Potassium 3.6, Chloride 111 H, Carbon Dioxide 20 L, Anion Gap 7.6, BUN 11 D, Creatinine 1.20 H, Estimated Creat Clear 61, Estimated GFR 47 L, Est GFR ( Amer) 57 L D, Glucose 119 H D, Calcium 7.7 L I & O for Last 24 hours: Intake & Output 06/01/20 06/02/20 06/03/20 06/04/20 23:59 23:59 23:59 23:59 Intake Total 975 / 975 360 / 360 Balance 975 / 975 360 / 360 Weight 135 lb 154 lb 154 lb 5 oz Microbiology Reports for the Last 24 Hours: Microbiology 06/03/20 01:00 Blood Blood Culture - Preliminary 06/02/20 22:56 Buttock - Abscess Gram Stain - Final 06/02/20 22:56 Buttock - Abscess Wound Culture - Preliminary NO GROWTH AFTER 24 HOURS 06/02/20 22:53 Urine,Clean Catch Urine Culture - Preliminary NO GROWTH AFTER 24 HOURS - Constitutional no acute distress - *Routine HEENT Exam Head: Present: normocephalic Eye: Present: EOMI ENT: Present: mucous membranes moist - *Routine Neck Exam Present: supple, trachea midline. Absent: lymphadenopathy, tracheal deviation - *Routine Respiratory Exam Present: CTA bilaterally. Absent: accessory muscle use - *Routine Cardiovascular Exam Present: RRR, Normal S1, Normal S2. Absent: bradycardia - *Routine Abdominal Exam Present: soft, normoactive bowel sounds. Absent: tenderness, firm - *Routine Extremities Exam Present: full ROM, pulses intact. Absent: cyanosis, clubbing, calf tenderness - *Routine Skin Exam Present: erythema, dry, warm, wounds. Absent: cyanosis Comments: Complex chronic wound throughout gluteal region and bilateral medial buttocks. Significant tissue thickening and induration - *Routine Neurological Exam Present: alert, oriented X3. Absent: pronator drift, altered mental status - Routine Psychiatric Exam Present: normal affect, normal thought process. Absent: auditory hallucinations, visual hallucinations Assessment and Plan (1) МАРИЯ (acute kidney injury) Status: Acute Category: Medical Code(s): N17.9 - Acute kidney morenita
--- NOTE | 2020-06-04 10:09 | XR_ITS ---
PROCEDURE: XR CHEST PORTABLE CLINICAL HISTORY: needing o2 Pneumonia COMPARISON: CR XR CHEST PORTABLE from 06/02/[address] ABDOMEN PELVIS W CON from 06/04/2020 FINDINGS: Normal heart size. Pulmonary vessels are somewhat prominent which could be due to fluid volume overload There has been interval development bilateral lower lobe airspace disease with small right pleural effusion No acute bony abnormalities. IMPRESSION: Pulmonary venous congestion which may be related to plasma volume overload with small right effusion and with bilateral lower lobe pneumonia Dictated by: Keenan Ulloa MD 06/04/2020 10:39 Keenan Ulloa MD in [facility] 06/04/2020 10:39
[2020-06-04 10:21] LABS: Adenovirus,PCR Not Detected (NotDetected); Bordetella Pertussis Not Detected (NotDetected); Chlamydophila Pneumoniae, PCR Not Detected (NotDetected); Coronavirus 19, PCR Not Detected (NotDetected); Coronavirus 229E Not Detected (NotDetected); Coronavirus NL63 Not Detected (NotDetected); Coronavirus OC43 Not Detected (NotDetected); Coronovirus HKU1,PCR Not Detected (NotDetected); Human Metapneumovirus Not Detected (NotDetected); Influenza A, PCR Not Detected (NotDetected); Influenza AH1, 2009 Not Detected (NotDetected); Influenza AH1, PCR Not Detected (NotDetected); Influenza AH3,PCR Not Detected (NotDetected); Influenza B, PCR Not Detected (NotDetected); Mycoplasma Pneumoniae, PCR Not Detected (NotDetected); Parainfluenza 1, PCR Not Detected (NotDetected); Parainfluenza 2, PCR Not Detected (NotDetected); Parainfluenza 3, PCR Not Detected (NotDetected); Parainfluenza 4, PCR Not Detected (NotDetected); Respiratory Syncytial Virus Not Detected (NotDetected); Rhinovirus/Enterovirus Not Detected (NotDetected)
--- NOTE | 2020-06-04 10:32 | XR_ITS ---
PROCEDURE: XR CHEST PORTABLE PICC PLAC CLINICAL HISTORY: Confirm PICC line placement COMPARISON: CR XR CHEST PORTABLE from 06/02/2020 CR XR CHEST PORTABLE from 06/04/2020 FINDINGS: Left upper extremity PICC line has been inserted. The tip is in the region the SVC. Bilateral pneumonia unchanged. Small right effusion. No acute bony abnormalities. IMPRESSION: Left upper extremity PICC line tip is in good position. No change bilateral pneumonia with small right effusion Dictated by: Keenan Ulloa MD 06/04/2020 14:51 Keenan Ulloa MD in [facility] 06/04/2020 14:51
[2020-06-04 13:11] VITALS: BMI 28.3
--- NOTE | 2020-06-04 13:14 | PC.NURSE ---
REPORTED CULTURE RESULTS TO SMITH AT DR. ADKINS'S OFFICE WHO SAID SHE WOULD REPORT TO DR ADKINS.
[2020-06-04 13:54] LABS: Chloride 109 mmol/L (98-107); Sodium 135 mmol/L (136-145)
[2020-06-04 13:55] LABS: Potassium 3.7 mmoL/L (3.5-5.1)
[2020-06-04 13:57] LABS: Blood Urea Nitrogen 9 mg/dl (7-17); Creatinine Clearance Estimated 61 mL/min (50-200); Estimated Glomerular Filt Rate 47 ml/min (>60); GFR (African American) 57 ML/MIN (>60)
[2020-06-04 13:58] LABS: Anion Gap 10.7 mEq/L (5-15); Calcium 8.1 mg/dl (8.4-10.2); Carbon Dioxide 19 mmol/L (22.0-30.0); Glucose 93 mg/dl (74-100)
--- NOTE | 2020-06-04 15:15 | PC.NURSE ---
SHE IS AOX4, ABLE TO MAKE NEEDS KNOWN TO STAFF, PT, PICC PLACEMENT SUCCESSFUL AND VERIFIED WITH CXRAY PER ORDERS, SHE HAS BEEN TREATED FOR PAIN WITH MORPHINE PER MAR AT REGULAR INTERVALS WITH GOOD EFFECTIVENESS, SHE DENIES N/V, ABD IS SOFT AND SHE DENIES PAIN ON PALPATION, SHE HAS TOLERATED RA WELL ALL DAY WITH NO COMPLAINTS, REPORT CALLED TO [facility] STILL NO BED AVAILABLE AT THIS TIME, SHE HAS BEEN IN BED FOR MOST OF SHIFT BUT WAS U TO CHAIR AT INTERVAL, PT STATES THAT SHE FEELS FATIGUED TODAY, OTHERWIAE NO ACUTE CHANGES NOTED. WILL CONTINUE TO MONITOR
[2020-06-04 16:00] VITALS: BP 120/69; PULSE 102; RESP 20; TEMP 37.2; O2SAT 90
--- NOTE | 2020-06-04 18:39 | PC.NURSE ---
LED REPORT TO [facility]. BED AVAILABLE FOR PT TRANSPORT TARI.
--- NOTE | 2020-06-04 19:14 | HMH.DCSUM ---
General - General Admission date:: 06/03/20 <Cayden Gonzalez - 06/04/20 20:18> 06/03/20 <Otto Camacho - 06/04/20 19:16> Discharge date: 06/04/20 <Otto Camacho - 06/04/20 19:16> HPI HPI: 49-year-old female patient reports she was walking her dog outside and was returning home, came to the hill leading up to her house, fell, and was unable to make it up the hill. She reports she has been feeling tired and weak for a couple days and decreased food/fluid intake. She denies fever/chills/body aches. EMS was activated and patient was brought into the emergency room. She denies hitting her head or loss of consciousness, chest pain, or any injury to her body. She does have a chronic wound in her gluteal region and bilateral medial buttocks and an ileostomy. In the emergency room she received morphine, Zofran, vancomycin, Zosyn IV, and approximately 3 L of IV fluid. She has a past medical history of Crohn's with ileostomy, osteoporosis, and rheumatoid arthritis and taking Humira Lab work on presentation white count 35.7, H/H 12.8/40.9, sodium 125, potassium 3.8, BUN 22, creatinine 2.5, GFR 20, anion gap 32.8. Urinalysis showed 1+ leukocyte esterase and 1+ bacteria, culture was sent to lab. Heart rate on arrival was 133, blood pressure has been as low as 92/60, and she was afebrile. Abdomen/pelvic CT unable to be performed due to acute kidney injury 06/02/20 chest x-ray revealed no acute findings 06/02/20 Pelvic XR: FINDINGS: No fracture or dislocation is evident. No significant degenerative change. Postsurgical changes inter pedicular screws at L5 and S1 with bony hypertrophy at the L5-S1 junction laterally. Surgical clips are present in the lower pelvis on the left. An ostomy bag noted on the right IMPRESSION: As above, no acute finding Dictated by: Artemio, This morning 49-year-old female patient sitting up in bed she reports she is feeling better reports last night she was confused, fell down, and is able to get back up to her feet. She does report she has had some drainage in her gluteal folds but also reports that is somewhat normal for her she reports. She does report having some increased pain in her gluteal area. General surgery has been consulted and awaiting their recommendations. We will also repeat a BMP this afternoon to see if there is an increase in her kidney function. Now sodium 132, potassium 3.4, BUN 20, creatinine 1.8, GFR of 40, and an ion gap 11.4. PLAN: 1. Consult surgery 2. BMP this afternoon 3. Continue Vanco and Zosyn 4. Awaiting urine culture, wound culture, and blood cultures <Otto Camacho - 06/04/20 19:39> Hospital Course Hospital Course: 49-year-old female patient reports she was walking her dog outside and was returning home, came to the hill leading up to her house, fell, and was unable to make it up the hill. She reports she has been feeling tired and weak for a couple days and decreased food/fluid intake. She denies fever/chills/body aches. EMS was activated and patient was brought into the emergency room. She denies hitting her head or loss of consciousness, chest pain, or any injury to her body. She does have a chronic wound in her gluteal region and bilateral medial buttocks and an ileostomy. In the emergency room she received morphine, Zofran, vancomycin, Zosyn IV, and approximately 3 L of IV fluid. She has a past medical history of Crohn's with ileostomy, osteoporosis, and rheumatoid arthritis and taking Humira Lab work on presentation white count 35.7, H/H 12.8/40.9, sodium 125, potassium 3.8, BUN 22, creatinine 2.5, GFR 20, anion gap 32.8. Urinalysis showed 1+ leukocyte esterase and 1+ bacteria, culture was sent to lab. Heart rate on arrival was 133, blood pressure has been as low as 92/60, and she was afebrile. Abdomen/pelvic CT unable to be performed due to acute kidney injury 06/02/20 chest x-ray revealed no acute findings 06/02/20 Pelv
--- NOTE | 2020-06-04 19:49 | PC.NURSE ---
[facility] notified of patient need for transfer to [place].
[2020-06-04 20:00] VITALS: BP 123/67; PULSE 108; RESP 20; TEMP 37.3; O2SAT 92
--- NOTE | 2020-06-04 20:42 | PC.NURSE ---
PT LEFT FLOOR VIA STRETCHER WITH [facility] @ 2032
[2020-06-04 21:32] LABS: Peripheral Smear Review Scanned Result
== END 2020-06-04 20:36 | disposition short-term general hospital (02) | DRG 540 ==
LOC: ER 20:30 → 2ND 06-03 01:56
PROVIDERS: Nurse Practitioner Family; Admitting Provider Emergency Medicine; Emergency Provider Emergency Medicine; PCP Physician Assistant; Visit Provider Emergency Medicine
DX: M86.8X8 Other osteomyelitis, other site (principal); L02.31 Cutaneous abscess of buttock; N39.0 Urinary tract infection, site not specified; N17.9 Acute kidney failure, unspecified; L03.317 Cellulitis of buttock; K50.90 Crohn's disease, unspecified, without complications; W01.0XXA Fall on same level from slipping, tripping and stumbling without subsequent striking against object, initial encounter; Y92.014 Private driveway to single-family (private) house as the place of occurrence of the external cause; Z93.2 Ileostomy status
CPT/HCPCS: 36415; 36569; 71045; 72170; 74177; 80048; 80053; 80305; 80329; 81001; 82009; 82550; 82803; 83036; 83605; 83735; 84145; 84484; 85007; 85025; 85651; 85730; 86140; 86328; 87040; 87070; 87077; 87086; 87088; 87186; 87205; 87581; 87633; 87798; 96365; 96366; 96367; 96375; 99285; C1751; J2405; J2543; J3370; Q9967

== ENCOUNTER 2020-07-02 13:25 | Outpatient (CLI) | payer MEDICARE, MEDICAID, SELFPAY ==
--- NOTE | 2020-07-02 13:53 | HMH.PHACONS ---
- Pharmacy Consult Date: 07/02/20 Time: 13:53 Referring provider: DR. ADKINS Reason for Consult:: VANCOMYCIN DOSING Allergies and ADEs:: Allergies Allergy/AdvReac Type Severity Reaction Status Date / Time ibuprofen [From Motrin] Allergy Mild Verified 07/02/20 13:01 Home Medications:: Home Medications Medication Instructions Recorded Confirmed Type buspirone 10 mg tablet 10 mg PO BID 03/25/20 07/02/20 History Adalimumab [Humira Pen] 40 mg SQ DIRECTED 06/03/20 07/02/20 History Gabapentin 800 mg PO TID 06/03/20 07/02/20 History Oxycodone HCl/Acetaminophen 1 tab PO QID 06/03/20 07/02/20 History [Oxycodone-Acetaminophen 10-325] alendronate 70 mg tablet 70 mg PO WEEKLY #14 tab 06/19/20 07/02/20 Rx fluoxetine 20 mg capsule 20 mg PO DAILY #90 cap 07/01/20 07/02/20 Rx fluoxetine 40 mg capsule 40 mg PO DAILY #90 cap 07/01/20 07/02/20 Rx amitriptyline 25 mg tablet See Rx Instructions .ROUTE 07/02/20 Rx .COMPLEX #30 tablet Height: 1.58 m Weight: 67.132 kg Laboratory Results:: SRCR 1.2 MG/DL Medical History: Reports:: Anxiety, Depression, Hypertension Denies:: Diabetes Mellitus Type 1, Diabetes Mellitus Type 2, Hyperlipidemia Assessment and Plan - Assessment and plan all Dx Assessment and Plan for all problems:: Age: 49 yo Serum creatinine: 1.2 mg/dL Height: 62.0 Inches Weight (kg): 67.132 IBW (kg): 50.10 Dosing wt(kg): 67.132 Estimated Creatinine clearance (ml/min): 43.9 CRCL method: Cockcroft and Gault using ibw(default). Drug selected: Vancomycin Loading dose (mg): 0 Vd (liters): 53.7 (factor used: 0.8 L/kg) Ozzie (hr-1): 0.041 Half life (hrs): 16.91 Recommended dose: 1250 mg Interval: 24 hrs Infusion time (hrs): 2.0 Predicted peak (mcg/mL): 35.7 Predicted trough (mcg/mL): 14.49 Total body weight is being used for vancomycin dosing. R Recommendations: Give Vancomycin 1250 mg q 24 hrs with an expected Cpeak of 35.7 mcg/ml and an expected Ctrough of 14.49 mcg/ml
[2020-07-02 13:59] LABS: Chloride 107 mmol/L (98-107); Potassium 4.3 mmoL/L (3.5-5.1); Sodium 137 mmol/L (136-145)
[2020-07-02 14:00] VITALS: BP 103/74; PULSE 76; RESP 18; TEMP 36.2; O2SAT 100
[2020-07-02 14:02] LABS: Anion Gap 11.3 mEq/L (5-15); Blood Urea Nitrogen 21 mg/dl (7-17); Calcium 9.8 mg/dl (8.4-10.2); Carbon Dioxide 23 mmol/L (22.0-30.0); Creatinine Clearance Estimated 78 mL/min (50-200); Estimated Glomerular Filt Rate 66 ml/min (>60); GFR (African American) 80 ML/MIN (>60); Glucose 114 mg/dl (74-100)
[2020-07-02 14:30] VITALS: BP 104/71; PULSE 71; RESP 18
[2020-07-02 15:00] VITALS: BP 110/74; PULSE 69; RESP 18
[2020-07-02 15:30] VITALS: BP 115/75; PULSE 69; RESP 18
[2020-07-02 15:50] VITALS: BP 117/78; PULSE 74; RESP 18
== END 2020-07-02 16:20 | disposition home or self-care (01) ==
LOC: INF 13:38
PROVIDERS: PCP Emergency Medicine; Visit Provider Emergency Medicine
DX: A41.89 Other specified sepsis (principal); A41.9 Sepsis, unspecified organism; R65.20 Severe sepsis without septic shock; M86.9 Osteomyelitis, unspecified; L03.317 Cellulitis of buttock
CPT/HCPCS: 80048; 96365; 96366; J3370

== ENCOUNTER 2020-07-03 13:01 | Outpatient (CLI) | payer MEDICARE, MEDICAID, SELFPAY ==
[2020-07-03 13:05] VITALS: BP 107/71; PULSE 70; RESP 18; TEMP 36.4; O2SAT 97
[2020-07-03 14:55] VITALS: BP 118/80; PULSE 72; RESP 18
== END 2020-07-03 14:55 | disposition home or self-care (01) ==
LOC: INF 13:01
PROVIDERS: Visit Provider Emergency Medicine
DX: A41.89 Other specified sepsis (principal); A41.9 Sepsis, unspecified organism; R65.20 Severe sepsis without septic shock; M86.9 Osteomyelitis, unspecified; L03.317 Cellulitis of buttock
CPT/HCPCS: 96365; 96366; J3370

== ENCOUNTER 2020-07-04 12:20 | Outpatient (CLI) | payer MEDICARE, MEDICAID, SELFPAY ==
[2020-07-04 12:36] VITALS: BMI 25.4
[2020-07-04 12:52] LABS: Chloride 107 mmol/L (98-107); Potassium 4.4 mmoL/L (3.5-5.1); Sodium 139 mmol/L (136-145)
[2020-07-04 12:55] LABS: Anion Gap 10.4 mEq/L (5-15); Blood Urea Nitrogen 28 mg/dl (7-17); Carbon Dioxide 26 mmol/L (22.0-30.0); Creatinine Clearance Estimated 69 mL/min (50-200); Estimated Glomerular Filt Rate 58 ml/min (>60); GFR (African American) 71 ML/MIN (>60)
[2020-07-04 12:56] LABS: Calcium 9.3 mg/dl (8.4-10.2); Glucose 95 mg/dl (74-100)
[2020-07-04 13:33] LABS: Vancomycin,Trough 8.7 ug/mL (5.0-10.0)
[2020-07-04 13:55] VITALS: BP 106/72; PULSE 79; RESP 18; TEMP 36.7; O2SAT 98
[2020-07-04 14:55] VITALS: BP 127/73; PULSE 82; RESP 16; O2SAT 99
[2020-07-04 15:40] VITALS: BP 117/69; PULSE 81; RESP 16; O2SAT 99
[2020-07-04 16:00] VITALS: BP 122/71; PULSE 76; RESP 18; TEMP 36.6; O2SAT 98
== END 2020-07-04 16:10 | disposition home or self-care (01) ==
LOC: INF 12:32
PROVIDERS: Visit Provider Emergency Medicine
DX: A41.89 Other specified sepsis (principal); R65.20 Severe sepsis without septic shock; M86.9 Osteomyelitis, unspecified; L03.317 Cellulitis of buttock
CPT/HCPCS: 80048; 80202; 96365; 96366; J3370

== ENCOUNTER → 2020-07-05 12:57 | Outpatient (CLI) | payer MEDICARE, MEDICAID, SELFPAY ==
[2020-07-05 13:10] VITALS: BP 107/71; PULSE 80; RESP 16; TEMP 36.9; O2SAT 98
[2020-07-05 15:40] VITALS: BP 117/80; PULSE 74; RESP 16; TEMP 36.8; O2SAT 98
== END ==
PROVIDERS: PCP Emergency Medicine; Visit Provider Emergency Medicine
DX: A41.89 Other specified sepsis (principal); R65.20 Severe sepsis without septic shock; M86.9 Osteomyelitis, unspecified; L03.317 Cellulitis of buttock
CPT/HCPCS: 96365; 96366; J3370

== ENCOUNTER 2020-07-06 12:59 | Outpatient (CLI) | payer MEDICARE, MEDICAID, SELFPAY ==
[2020-07-06 13:50] LABS: Chloride 104 mmol/L (98-107); Potassium 4.4 mmoL/L (3.5-5.1); Sodium 138 mmol/L (136-145)
[2020-07-06 13:53] LABS: Anion Gap 11.4 mEq/L (5-15); Blood Urea Nitrogen 21 mg/dl (7-17); Carbon Dioxide 27 mmol/L (22.0-30.0); Estimated Glomerular Filt Rate 58 ml/min (>60); GFR (African American) 71 ML/MIN (>60)
[2020-07-06 13:54] LABS: Calcium 9.3 mg/dl (8.4-10.2); Glucose 99 mg/dl (74-100)
[2020-07-06 14:04] LABS: Vancomycin,Trough 11.5 ug/mL (5.0-10.0)
--- NOTE | 2020-07-06 14:13 | HMH.PHACONS ---
- Pharmacy Consult Date: 07/06/20 Time: 14:13 Referring provider: DR. ADKINS Reason for Consult:: VANCOMYCIN TROUGH LEVEL AND DOSE INCREASE Allergies and ADEs:: Allergies Allergy/AdvReac Type Severity Reaction Status Date / Time ibuprofen [From Motrin] Allergy Mild Verified 07/04/20 15:36 Home Medications:: Home Medications Medication Instructions Recorded Confirmed Type buspirone 10 mg tablet 10 mg PO BID 03/25/20 07/03/20 History Adalimumab [Humira Pen] 40 mg SQ DIRECTED 06/03/20 07/04/20 History Gabapentin 800 mg PO TID 06/03/20 07/03/20 History Oxycodone HCl/Acetaminophen 1 tab PO QID 06/03/20 07/03/20 History [Oxycodone-Acetaminophen 10-325] fluoxetine 20 mg capsule 20 mg PO DAILY #90 cap 07/01/20 07/04/20 Rx fluoxetine 40 mg capsule 40 mg PO DAILY #90 cap 07/01/20 07/03/20 Rx Alendronate Sodium [Fosamax 70mg 70 mg PO WEEKLY 07/02/20 07/03/20 History Tablet] Amitriptyline HCl [Elavil 25mg 25 mg PO HS 07/02/20 07/04/20 History tablet] ondansetron HCL [Zofran 4mg Tab*] 4 mg PO Q4HP PRN 07/02/20 07/04/20 History Height: 1.6 m Weight: 65.317 kg Laboratory Results:: Laboratory Results - last 24 hr 07/06/20 13:37: Sodium 138, Potassium 4.4, Chloride 104, Carbon Dioxide 27, Anion Gap 11.4, BUN 21 H, Creatinine 1.00, Estimated GFR 58 L, Est GFR ( Amer) 71, Glucose 99, Calcium 9.3 07/06/20 13:37: Vancomycin Trough 11.5 H Medical History: Reports:: Anxiety, Congestive Heart Failure, Depression, Hypertension Denies:: Diabetes Mellitus Type 1, Diabetes Mellitus Type 2, Hyperlipidemia Assessment and Plan - Assessment and plan all Dx Assessment and Plan for all problems:: BASED ON PATIENT FACTORS AND VANCOMYCIN TROUGH LEVEL OF 11.5, RECOMMEND SLIGHTLY INCREASING SALVADOR TO 1,750MG IV Q24H FOR THE LAST 3 DOSES. PHARMACY WILL CONTINUE TO FOLLOW AND MAKE ADJUSTMENTS APPROPRIATE. PATIENT'S LAST DOSE IS 07/08/20. -LITTLE COREAD
[2020-07-06 14:30] VITALS: BP 100/68; PULSE 78; RESP 18; TEMP 36.8; O2SAT 97
[2020-07-06 16:45] VITALS: BP 128/79; PULSE 83; RESP 18; O2SAT 98
== END 2020-07-06 17:00 | disposition home or self-care (01) ==
LOC: INF 13:00
PROVIDERS: PCP Emergency Medicine; Visit Provider Emergency Medicine
DX: A41.89 Other specified sepsis (principal); R65.20 Severe sepsis without septic shock; M86.9 Osteomyelitis, unspecified; L03.317 Cellulitis of buttock
CPT/HCPCS: 36415; 80048; 80202; 96365; 96366; J3370

== ENCOUNTER 2020-07-08 13:07 | Outpatient (CLI) | payer MEDICARE, MEDICAID, SELFPAY ==
[2020-07-08 13:09] VITALS: BP 97/73; PULSE 77; RESP 18; TEMP 36.5; O2SAT 98
[2020-07-08 13:30] VITALS: BP 106/75; PULSE 80; RESP 16; O2SAT 98
[2020-07-08 14:00] VITALS: BP 112/69; PULSE 74; RESP 16; O2SAT 97
[2020-07-08 14:30] VITALS: BP 108/72; PULSE 72; RESP 18; O2SAT 97
[2020-07-08 15:00] VITALS: BP 102/68; PULSE 69; RESP 18
[2020-07-08 15:45] VITALS: BP 116/74; PULSE 76; RESP 16; TEMP 36.6; O2SAT 98
== END 2020-07-08 15:50 | disposition home or self-care (01) ==
LOC: INF 13:07
PROVIDERS: Visit Provider Emergency Medicine
DX: A41.89 Other specified sepsis (principal); R65.20 Severe sepsis without septic shock; M86.9 Osteomyelitis, unspecified; L03.317 Cellulitis of buttock
CPT/HCPCS: 96365; J3370

== ENCOUNTER 2020-07-09 12:50 | Outpatient (CLI) | payer MEDICARE, MEDICAID, SELFPAY ==
[2020-07-09 13:15] VITALS: BP 93/62; PULSE 87; RESP 18; TEMP 36.5; O2SAT 98
[2020-07-09 13:45] VITALS: BP 100/62; PULSE 83; RESP 18
[2020-07-09 14:15] VITALS: BP 95/54; PULSE 83; RESP 18
[2020-07-09 14:45] VITALS: BP 91/53; PULSE 81; RESP 18
[2020-07-09 15:00] VITALS: BP 91/57; PULSE 82; RESP 18
== END 2020-07-09 15:19 | disposition home or self-care (01) ==
LOC: INF 12:53
PROVIDERS: Visit Provider Emergency Medicine
DX: A41.89 Other specified sepsis (principal); R65.20 Severe sepsis without septic shock; M86.9 Osteomyelitis, unspecified; L03.317 Cellulitis of buttock
CPT/HCPCS: 96365; J3370

== ENCOUNTER → 2020-09-10 17:28 | Outpatient (CLI) | payer MEDICARE, MEDICAID, SELFPAY ==
[2020-09-10 18:19] LABS: Amphetamine/Metha Screen,Urine Negative ng/ml (<1000)
[2020-09-10 18:20] LABS: Barbiturates Screen,Urine Negative ng/ml (<200); Benzodiazepines Screen,Urine Negative ng/ml (<200)
[2020-09-10 18:21] LABS: Cannabinoid Screen,Urine Negative ng/ml (<50); Cocaine Screen,Urine Negative ng/ml (<300)
[2020-09-10 18:22] LABS: Methadone Screen,Urine Negative ng/ml (<300)
[2020-09-10 18:23] LABS: Opiate Screen,Urine Positive ng/ml (<300)
[2020-09-10 18:24] LABS: Phencyclidine Screen,Urine Negative ng/ml (<25)
== END ==
PROVIDERS: Visit Provider Emergency Medicine
DX: Z79.899 Other long term (current) drug therapy (principal)
CPT/HCPCS: 80305

== ENCOUNTER → 2020-10-10 09:41 | Outpatient (CLI) | payer MEDICARE, MEDICAID, SELFPAY ==
--- NOTE | 2020-10-10 09:41 | CT_ITS ---
PROCEDURE: CT ABDOMEN PELVIS W CON CLINICAL INDICATION: f/u on osteomyelitis coccyx Hx of chrons disease Septic infection in rectum Multiple anal fistula surgeries Colon and rectum removed COMPARISON: CT CT ABDOMEN PELVIS W CON from 06/04/2020 TECHNIQUE: IV Contrast: 75ML Isovue 370 Oral Contrast None Axial images obtained with sagittal and coronal reformats. All CT scans at the facility use one or more dose reduction, viz: automated exposure control, ma/kV adjustment per patient size (including targeted exams where dose is matched to indication, i.e. head), or iterative reconstruction technique. FINDINGS: LOWER THORAX: Minimal atelectatic changes in the lung bases. ABDOMEN AND PELVIS: The liver, spleen adrenal glands, pancreas, and kidneys have an unremarkable appearance. Prior colectomy with right lower quadrant ileostomy.. There are mildly prominent small bowel loops in the left upper quadrant with mild bowel wall thickening and a few scattered air-fluid levels. Urinary bladder is decompressed with mild bladder wall thickening. There remains abnormal soft tissue density in the rectal fossa and presacral region with a few scattered areas of gas. This extends inferiorly to the perineal region consistent with phlegmonous changes with fistula which appears to extend to the perineal area. This does not appear significantly changed there may be a small abscess in the presacral area 12 mm. There is erosion of the tip of the coccyx not significantly changed. There is increased soft tissue density posterior to the lower sacrum and coccyx with a small amount of gas consistent with abscess/fistula direct is somewhat cephalad exiting posteriorly at the S4 level. There are prominent periuterine veins and gonadal veins. There is grade 1 spondylolisthesis of L5 on S1 with postsurgical changes at that level and inter pedicular screws. The previously noted abscess in the left gluteal region has resolved. IMPRESSION: 1. Mildly prominent small bowel loops in the left upper quadrant with air-fluid levels consistent with enteritis/Crohn's disease. Prior colectomy. 2. Interval resolution of left buttock abscess. 3. Persistent phlegmonous changes in the pelvis with small abscesses and fistulas extending to the Christel anal region and posterior to the sacrum with erosion of the tip of the coccyx overall not significantly changed. Dictated by: Keenan Ulloa MD 10/13/2020 06:15 Keenan Ulloa MD in [facility] 10/13/2020 06:15
== END ==
PROVIDERS: PCP Emergency Medicine; Visit Provider Emergency Medicine
DX: M86.9 Osteomyelitis, unspecified (principal)
CPT/HCPCS: 74177; Q9967

== ENCOUNTER → 2020-10-15 17:57 | Outpatient (CLI) | payer MEDICARE, MEDICAID, SELFPAY ==
[2020-10-15 18:11] LABS: Basophils # 0.1 K/mm3 (0-0.2); Basophils % 0.6 % (0.1-2.0); Eosinophils # 0.4 K/mm3 (0.0-0.4); Eosinophils % 2.8 % (0.1-12.0); Hematocrit 38.5 % (37.0-47.0); Hemoglobin 12.3 g/dL (12.2-16.2); Lymphocytes # 4.4 K/mm3 (0.7-4.5); Lymphocytes % 32.6 % (10-50); Mean Corpuscular Hemoglobin 27.6 pg (27.0-31.2); Mean Corpuscular Volume 86.2 fl (81-99); Mean Platelet Volume 7.7 fl (7.4-10.4); Monocytes # 0.4 K/mm3 (0.1-1.0); Monocytes % 3.3 % (1.7-9.3); Neutrophils # 8.3 K/mm3 (1.8-7.8); Neutrophils % 60.9 % (37.0-80.0); Platelet Count 456 K/mm3 (142-424); Red Blood Count 4.47 M/mm3 (4.20-5.40); Red Cell Distribution Width 14.6 % (11.5-17.5); White Blood Count 13.6 K/mm3 (4.8-10.8)
[2020-10-15 18:24] LABS: Anion Gap 12.2 mEq/L (5-15); Blood Urea Nitrogen 14 mg/dl (7-17); Calcium 9.4 mg/dl (8.4-10.2); Carbon Dioxide 23 mmol/L (22.0-30.0); Chloride 106 mmol/L (98-107); Estimated Glomerular Filt Rate 66 ml/min (>60); GFR (African American) 80 ML/MIN (>60); Glucose 93 mg/dl (74-100); Potassium 4.2 mmoL/L (3.5-5.1); Sodium 137 mmol/L (136-145)
[2020-10-15 18:42] LABS: Procalcitonin 0.056 ng/mL (0.0-2.0)
[2020-10-15 19:55] LABS: Erythrocyte Sedimentation Rate 44 mm/hr (0-30)
== END ==
PROVIDERS: Visit Provider Emergency Medicine
DX: A41.9 Sepsis, unspecified organism (principal); R65.20 Severe sepsis without septic shock
CPT/HCPCS: 80048; 84145; 85025; 85651; 86140

== ENCOUNTER → 2020-10-31 16:53 | Outpatient (CLI) | payer MEDICARE, MEDICAID, SELFPAY ==
--- NOTE | 2020-10-31 16:53 | MM_ITS ---
PROCEDURE INFORMATION: Exam: MG Screening 3D Mammography Exam date and time: 10/31/2020 4:53 PM Age: 50 years old Clinical indication: Encounter for screening mammogram for malignant neoplasm of breast TECHNIQUE: Imaging protocol: Screening tomosynthesis and 2D mammography including computer-aided detection (CAD) when performed. COMPARISON: No relevant prior studies available. FINDINGS: MAMMOGRAPHY: Breast composition: The breast tissue is composed of scattered areas of fibroglandular density. Mass: None. Architectural distortion: None. Calcifications: No suspicious calcifications. Asymmetric density: None. Skin thickening: None. Axillary adenopathy: None. IMPRESSION: No mammographic evidence of malignancy. Annual screening is recommended unless otherwise clinically indicated. ASSESSMENT: BI-RADS Category 1: Negative
== END ==
PROVIDERS: PCP Emergency Medicine; Visit Provider Emergency Medicine
DX: Z12.31 Encounter for screening mammogram for malignant neoplasm of breast (principal)
CPT/HCPCS: 77063; 77067

== ENCOUNTER → 2020-11-05 19:09 | Outpatient (CLI) | payer MEDICARE, MEDICAID, SELFPAY ==
[2020-11-05 20:16] LABS: Barbiturates Screen,Urine Negative ng/ml (<200)
[2020-11-05 20:17] LABS: Cannabinoid Screen,Urine Negative ng/ml (<50)
[2020-11-05 20:18] LABS: Cocaine Screen,Urine Negative ng/ml (<300)
[2020-11-05 20:19] LABS: Methadone Screen,Urine Negative ng/ml (<300)
[2020-11-05 20:20] LABS: Phencyclidine Screen,Urine Negative ng/ml (<25)
[2020-11-05 20:34] LABS: Opiate Screen,Urine Positive ng/ml (<300)
[2020-11-05 20:41] LABS: Benzodiazepines Screen,Urine Negative ng/ml (<200)
[2020-11-11 06:16] LABS: Amphetamine Positive (.); Amphetamine (GC/MS) >3000 ng/mL (Cutoff=500); Amphetamines Positive (.); Methamphetamine Negative (Cutoff=500)
== END ==
PROVIDERS: Visit Provider Emergency Medicine
DX: Z79.899 Other long term (current) drug therapy (principal)
CPT/HCPCS: 80305; 80324

== ENCOUNTER 2020-12-13 06:38 | Emergency (ER) | payer MEDICARE, MEDICAID, SELFPAY ==
[2020-12-13 06:37] VITALS: BP 106/81; PULSE 120; RESP 20; TEMP 36.6; O2SAT 95; BMI 25.7
--- NOTE | 2020-12-13 06:43 | ECG_ITS ---
APPROVED REPORT Exam: Resting ECG HR:109 bpm ECG Measurements Heart Rate 109 AXES SD 152 P 71 QRSd 78 QRS 72 QT 364 T 68 QTc 490 Conclusion Sinus tachycardia Nonspecific ST abnormality Abnormal ECG Electronically signed by : Lalo John, 12/14/2020 08:36:47
[2020-12-13 07:00] VITALS: BP 128/84; PULSE 98; RESP 20; O2SAT 97
[2020-12-13 07:14] LABS: Basophils # 0.1 K/mm3 (0-0.2); Basophils % 0.5 % (0.1-2.0); Eosinophils # 0.1 K/mm3 (0.0-0.4); Eosinophils % 0.6 % (0.1-12.0); Hematocrit 33.5 % (37.0-47.0); Hemoglobin 11.1 g/dL (12.2-16.2); Lymphocytes # 3.8 K/mm3 (0.7-4.5); Lymphocytes % 23.3 % (10-50); Mean Corpuscular HGB Conc 33.2 g/dL (31.8-35.4); Mean Corpuscular Hemoglobin 28.2 pg (27.0-31.2); Mean Corpuscular Volume 84.9 fl (81-99); Mean Platelet Volume 7.5 fl (7.4-10.4); Monocytes # 0.8 K/mm3 (0.1-1.0); Monocytes % 4.9 % (1.7-9.3); Neutrophils # 11.4 K/mm3 (1.8-7.8); Neutrophils % 70.7 % (37.0-80.0); Platelet Count 336 K/mm3 (142-424); Red Blood Count 3.94 M/mm3 (4.20-5.40); Red Cell Distribution Width 16.2 % (11.5-17.5); White Blood Count 16.2 K/mm3 (4.8-10.8)
[2020-12-13 07:16] LABS: MANUAL DIFFERENTIAL MANUAL DIFFERENTIAL (MANUAL DIFF)
[2020-12-13 07:20] LABS: Alanine Aminotransferase 32 U/L (12-78); Albumin Level 4.6 g/dl (3.5-5.0); Alkaline Phosphatase 80 U/L (38-126); Aspartate Amino Transferase 51 U/L (14-36); Bilirubin,Direct 0.3 mg/dl (0.0-0.4); Bilirubin,Indirect 0.2 mg/dL (0.0-0.9); Bilirubin,Total 0.5 mg/dl (0.2-1.3); Bilirubin,Unconjugated 0.1 mg/dL (0.0-1.1); Total Protein,Serum 8.2 g/dl (6.3-8.2)
[2020-12-13 07:21] LABS: Anion Gap 14.8 mEq/L (5-15); Blood Urea Nitrogen 11 mg/dl (7-17); Calcium 8.9 mg/dl (8.4-10.2); Carbon Dioxide 25 mmol/L (22.0-30.0); Chloride 104 mmol/L (98-107); Creatinine Clearance Estimated 57 mL/min (50-200); Estimated Glomerular Filt Rate 47 ml/min (>60); GFR (African American) 57 ML/MIN (>60); Glucose 117 mg/dl (74-100); Sodium 141 mmol/L (136-145)
[2020-12-13 07:26] LABS: Eosinophils % 1 % (0-3); Lymphocytes % 24 % (10-50); Monocytes % 8 % (2-9); Neutrophils % 67 % (42-76); Platelet Estimate Normal; RBC Morphology Normal; Total Cells Counted 100
[2020-12-13 07:27] LABS: Potassium 2.8 mmoL/L (3.5-5.1)
--- NOTE | 2020-12-13 07:27 | PC.NURSE ---
potassium is 2.8, md notified.
[2020-12-13 07:30] VITALS: BP 123/84; PULSE 101; O2SAT 99
[2020-12-13 07:36] LABS: Troponin I < 0.01 ng/ml (0.00-0.034)
--- NOTE | 2020-12-13 07:42 | HMH.EDOD ---
ED Disposition Clinical Impression: Poisoning by opiate or related narcotic, Ileostomy in place Disposition: Home, Self-Care Condition on Discharge: Good Instructions: DI for Drug Overdose in Adults Additional Instructions: see pcp tuesday or tuesday Referrals: Cayden Gonzalez MD [Primary Care Provider] - - Critical Care Critical Care Time: No Attestation: On 12/13/20, the high probability of a clinically significant, sudden or life threatening deterioration of the following system(s) required my full and direct attention, intervention and personal management. The time I documented below is in addition to time spent performing reported procedures but includes the following listed in this critical care notation. Medical Decision Making - Medical Records Medical records reviewed: Yes: I reviewed the patient's medical records. - Nick Inquiry Pt receiving controlled substance: No Vital Signs: 12/13/20 06:37 12/13/20 07:00 12/13/20 07:30 Temperature 97.9 F Temperature Source Oral Pulse Rate 98 H 101 H Pulse Rate [Left Radial] 120 H Respiratory Rate 20 20 Blood Pressure 128/84 123/84 Blood Pressure [Right Arm] 106/81 L Blood Pressure Mean 96 94 Blood Pressure Mean [Right Arm] 89 Blood Pressure Source [Right Arm] Automatic Cuff Blood Pressure Position [Right Arm] Sitting 02 Sat by Pulse Oximetry 95 97 99 Oxygen Delivery Method Room Air 12/13/20 08:00 Temperature Temperature Source Pulse Rate 95 H Pulse Rate [Left Radial] Respiratory Rate Blood Pressure 128/84 Blood Pressure [Right Arm] Blood Pressure Mean 94 Blood Pressure Mean [Right Arm] Blood Pressure Source [Right Arm] Blood Pressure Position [Right Arm] 02 Sat by Pulse Oximetry 94 L Oxygen Delivery Method - Lab Data Lab results reviewed: Yes: I reviewed the patient's lab results. Lab Results 12/13/20 07:06: WBC 16.2 H, RBC 3.94 L, Hgb 11.1 L, Hct 33.5 L, MCV 84.9, MCH 28.2, MCHC 33.2, RDW 16.2, Plt Count 336, MPV 7.5, Neut % (Auto) 70.7, Lymph % (Auto) 23.3, [place] % (Auto) 4.9, Eos % (Auto) 0.6, Baso % (Auto) 0.5, Neut # (Auto) 11.4 H, Lymph # (Auto) 3.8, [place] # (Auto) 0.8, Eos # (Auto) 0.1, Baso # (Auto) 0.1, Total Counted 100, Neutrophils % (Manual) 67, Lymphocytes % (Manual) 24, Monocytes % (Manual) 8, Eosinophils % (Manual) 1, Platelet Estimate Normal, RBC Morphology Normal 12/13/20 07:06: Sodium 141, Potassium 2.8 L*, Chloride 104, Carbon Dioxide 25, Anion Gap 14.8, BUN 11, Creatinine 1.20 H, Estimated Creat Clear 57, Estimated GFR 47 L, Est GFR ( Amer) 57 L, Glucose 117 H, Calcium 8.9, Troponin I < 0.01 12/13/20 07:06: Total Bilirubin 0.5, Direct Bilirubin 0.3, Conjugated Bilirubin 0.0, Indirect Bilirubin 0.2, Unconjugated Bilirubin 0.1, AST 51 H, ALT 32, Alkaline Phosphatase 80, Total Protein 8.2, Albumin 4.6 12/13/20 07:06: ESR > 140 H 12/13/20 07:06: C-Reactive Protein 25.8 H, Procalcitonin 0.068 Result diagrams: 12/13/20 07:06 12/13/20 07:06 Orders (Tests/Meds): ED MEDICATIONS Generic Name Dose Route Start Last Admin Trade Name Freq PRN Reason Stop Dose Admin Sodium Chloride 8 ml 12/13/20 07:28 Sodium Chloride 0.9% 10ml Vial IV 01/12/21 07:27 NEEDED PRN dilute pepcid Discontinued Medications Generic Name Dose Route Start Last Admin Trade Name Freq PRN Reason Stop Dose Admin Famotidine 20 mg 12/13/20 07:28 12/13/20 07:29 Famotidine 20mg/2ml Vial IV 12/13/20 07:29 20 mg ONCE ONE Administration Sodium Chloride 1,000 mls @ 999 mls/hr 12/13/20 07:00 12/13/20 07:03 Sod Chlor 0.9% 1000ml Bag IV 12/13/20 08:00 999 mls/hr .Q1H1M [place] Administration Metoclopramide HCl 10 mg 12/13/20 07:28 12/13/20 07:29 Metoclopramide Hcl 10mg/2ml Vial IVP 12/13/20 07:29 10 mg ONCE ONE Administration Ondansetron HCl 4 mg 12/13/20 06:52 12/13/20 07:03 Ondansetron 4mg/2ml Vial IV 12/13/20 06:53 4 mg ONCE ONE Administration Potassium Chloride
[2020-12-13 08:00] VITALS: BP 128/84; PULSE 95; O2SAT 94
[2020-12-13 08:24] LABS: C-Reactive Protein 25.8 mg/L (0-4)
[2020-12-13 08:30] VITALS: BP 134/80; PULSE 100; O2SAT 96
[2020-12-13 08:37] LABS: Erythrocyte Sedimentation Rate > 140 mm/hr (0-30); Procalcitonin 0.068 ng/mL (0.0-2.0)
[2020-12-13 10:05] VITALS: BP 132/74; PULSE 87; RESP 16; TEMP 36.6; O2SAT 98
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
== END 2020-12-13 10:07 | disposition home or self-care (01) ==
PROVIDERS: Emergency Provider Emergency Medicine; PCP Emergency Medicine
DX: T40.1X1A Poisoning by heroin, accidental (unintentional), initial encounter (principal); Y92.019 Unspecified place in single-family (private) house as the place of occurrence of the external cause; Z93.2 Ileostomy status; I10 Essential (primary) hypertension; F41.8 Other specified anxiety disorders; E78.5 Hyperlipidemia, unspecified; F17.290 Nicotine dependence, other tobacco product, uncomplicated
CPT/HCPCS: 80048; 80076; 84145; 84484; 85007; 85025; 85651; 86140; 93005; 96365; 96375; 99283; J2405

== ENCOUNTER → 2020-12-31 13:06 | Outpatient (CLI) | payer MEDICARE, MEDICAID, SELFPAY ==
[2020-12-31 14:52] LABS: Benzodiazepines Screen,Urine Negative ng/ml (<200)
[2020-12-31 14:53] LABS: Amphetamine/Metha Screen,Urine Positive ng/ml (<1000); Barbiturates Screen,Urine Negative ng/ml (<200)
[2020-12-31 14:54] LABS: Cannabinoid Screen,Urine Negative ng/ml (<50)
[2020-12-31 14:55] LABS: Cocaine Screen,Urine Negative ng/ml (<300); Methadone Screen,Urine Negative ng/ml (<300)
[2020-12-31 14:56] LABS: Opiate Screen,Urine Positive ng/ml (<300); Phencyclidine Screen,Urine Negative ng/ml (<25)
== END ==
PROVIDERS: Visit Provider Emergency Medicine
DX: Z79.899 Other long term (current) drug therapy (principal)
CPT/HCPCS: 80305

== ENCOUNTER 2021-01-04 00:28 | Emergency (ER) | payer MEDICARE, MEDICAID, SELFPAY ==
[2021-01-04 00:29] VITALS: BP 134/83; PULSE 129; RESP 18; TEMP 37.2; O2SAT 99; BMI 24.7
[2021-01-04 00:43] VITALS: BMI 25.8
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
[2021-01-04 03:04] VITALS: BP 108/59; PULSE 94; RESP 18; O2SAT 92
[2021-01-04 03:31] VITALS: BP 112/66; PULSE 88; RESP 14; TEMP 37.2; O2SAT 96
== END 2021-01-04 03:33 | disposition home or self-care (01) ==
PROVIDERS: Emergency Provider Emergency Medicine; PCP Emergency Medicine
DX: S00.03XA Contusion of scalp, initial encounter (principal); S60.212A Contusion of left wrist, initial encounter; Y04.0XXA Assault by unarmed brawl or fight, initial encounter; F41.8 Other specified anxiety disorders; E78.5 Hyperlipidemia, unspecified; I10 Essential (primary) hypertension; I50.9 Heart failure, unspecified; F17.290 Nicotine dependence, other tobacco product, uncomplicated
CPT/HCPCS: 70450; 72125; 73110; 99283